=== PATIENT | female | born 1975 | race Caucasian/White ===

== ENCOUNTER 2019-01-12 21:57 | Emergency (ER) | payer BC, OTHER ==
[2019-01-12] MEDS ORDERED: TETANUS,DIPHTHERIA,PERTUSSIS 1 EA SYG IM ONE (22:07)
[2019-01-12] MEDS ORDERED: AMOXICILLIN & POT CLAVULANATE 875 MG TAB PO ONE (22:07)
--- NOTE | 2019-01-12 22:09 | ED.PDOC ---
History of Present Illness - General Chief Complaint: Bite: Animal/Insect/Human Stated Complaint: Dog bite Time Seen by Provider: 01/12/19 22:06 Source: patient Exam Limitations: no limitations - History of Present Illness Initial Comments: the patient's 43-year-old female presenting to the emergency room secondary to a dog bite to her right forearm. She was leaving a public game when a dog that was on someone's leash jumped up and bit her arm. It pinched the skin and caused a couple small scratches. No deep puncture wound. Function is normal. Sensation is normal. She is neurovascularly intact. No other injuries. The man apparently holding the dog walked off with the dog immediately after. She does not know the man who owned the dog. she cleaned the wound with hydrogen peroxide very soon after. It has been about an hour and 20 minutes since the incident. Timing/Duration: momentarily Severity: mild Improving Factors: nothing Worsening Factors: nothing Associated Symptoms: denies symptoms Home Medications: Ambulatory Orders Amoxicillin & Pot Clavulanate [Augmentin Tab] 875 mg PO BID #6 tab 01/12/19 Review of Systems - Review of Systems Constitutional: States: no symptoms reported EENTM: States: no symptoms reported Respiratory: States: no symptoms reported Cardiology: States: no symptoms reported Gastrointestinal/Abdominal: States: no symptoms reported Genitourinary: States: no symptoms reported Musculoskeletal: States: no symptoms reported Skin: States: see HPI Neurological: States: no symptoms reported Endocrine: States: no symptoms reported All other Systems: No Change from Baseline Physical Exam - Physical Exam General Appearance: Alert, Comfortable, No apparent distress Eye Exam: bilateral normal Ears, Nose, Throat: hearing grossly normal Neck: full range of motion Respiratory: no respiratory distress, no accessory muscle use Cardiovascular/Chest: normal peripheral pulses, no edema, other - regular rate Peripheral Pulses: radial,right: 2+, radial,left: 2+ Rectal Exam: deferred Extremity: normal range of motion, no pedal edema, normal capillary refill 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 Police are being contacted for report. The dog was obviously owned because a man had it on a leash however she does not know who the otr owner operator truck driver was. the patient is receiving a tetanus shot and a first dose of Augmentin. She will be written for 3 days of Augmentin for prophylactic purposes. the wound was irrigated copiously with water for 5 minutes. ER warnings were given for any significant worsening. Departure - Departure Clinical Impression: Bite wound Disposition: Discharge to Home or Self Care Condition: Fair Departure Forms: ED Discharge - Pt. Copy, Patient Portal Self Enrollment Diet: regular diet Activity: increase activity as tolerated Referrals: Enio Armenta MD [Primary Care Provider] - 1-2 Weeks Prescriptions: Amoxicillin & Pot Clavulanate [Augmentin Tab] 875 mg PO BID #6 tab Home Medications: Ambulatory Orders Amoxicillin & Pot Clavulanate [Augmentin Tab] 875 mg PO BID #6 tab 01/12/19 Additional Instructions: the patient's a 43-year-old female presenting to the emergency room secondary to a superficial dog bite wound to the right forearm. Police are being contacted for report. The dog was obviously owned because a man had it on a leash however she does not know who the otr owner operator truck driver was. the patient is receiving a tetanus shot and a first dose of Augmentin. She will be written for 3 days of Augmentin for prophylactic purposes. She is already clean the wound adequately with hydrogen peroxide. ER warnings were given for any significant worsening.
[2019-01-12 22:24] VITALS: BP 128/58; TEMP 98; O2SAT 98
== END 2019-01-12 22:35 | disposition home or self-care (01) ==
LOC: ER 21:57
DX: S50.871A Other superficial bite of right forearm, initial encounter (principal); W54.0XXA Bitten by dog, initial encounter; Y92.89 Other specified places as the place of occurrence of the external cause; Z23 Encounter for immunization